=== PATIENT | male | born 1950 | race Caucasian/White ===

== ENCOUNTER 2016-04-19 09:28 | Day surgery (SDC) | payer BC ==
--- NOTE | 2016-04-19 07:07 | History and Physical Report ---
CHIEF COMPLAINT/HISTORY OF CHIEF COMPLAINT: This patient with a post laminectomy radiculitis currently has a spinal fusion system in place low abdomen which is nonfunctional. A spine cord stimulator trial was conducted to determine if the implantation of this device would be of any value. The stimulator trial failed. He is here for removal and replacement of his pump with a new system. The new system will be repositioned from the abdomen to the posterior. PAST MEDICAL HISTORY: Chronic obstructive pulmonary disease. PAST SURGICAL HISTORY: Multiple lumbar laminectomies, pump implant, and battery placement. EMPLOYMENT STATUS: Retired. MEDICATIONS ON ADMISSION: List to be provided. ALLERGIES: None. SOCIAL HISTORY: Caffeine. Cigarette smoking. FAMILY HISTORY: Noncontributory. SYSTEMS REVIEW: The patient is appropriate in no acute distress. The remainder of the systems review is noncontributory. PHYSICAL EXAMINATION: Height and weight are not known. Vital signs: Blood pressure is 140/80. Current examination shows tenderness in the lumbar spine. Range of motion does cause pain with extension. His lower extremity functionality shows pain moving into both lower extremities. Pump in the lower abdominal quadrant, incision intact. Midline catheter incision mid to low back and intact. IMPRESSION: 1. POST LUMBAR LAMINECTOMY SYNDROME, ICD10 CODE M96.1. 2. LUMBAR RADICULITIS, ICD10 CODE M54.16 AND M54.17. 3. NONFUNCTIONAL SPINAL FUSION DEVICE. PLAN: The patient is here for removal of the abdominal pump and replacement with a posterior gluteal margin pump or flank depending upon the most appropriate location for the device. The procedure will be considered outpatient and an overnight stay will be evaluated. All the potential risks, side effect, and complications have been carefully reviewed and discussed. The patient understands the potential for nerve root injury, spinal cord injury, spinal headache, he has read all of the appropriate information provided through the clinic and all of the information provided through the digital media buyer. All questions have been answered. We will consider the patient as stated an overnight stay possibility. GABRIELA KAPOOR D.O. Date & Time JOB NUMBER: [id number] [facility]
[~2016-04-19 09:28] MED LIST: ACETAMINOPHEN 1000MG/100 ML PREMIX IV ONE; CEFAZOLIN 2 Gram 50 ML IVPB ONE; FAMOTIDINE 20MG TABLET PO ONE; HYDROMORPHONE HCL 0.008 GM in 0.9 % SODIUM CHLORIDE 10ML VIA 20 ML IV ONE; HYDROMORPHONE HCL/PF 0.002 MG in 0.9 % SODIUM CHLORIDE 10ML VIA 0.998 ML IVP ONE; MECLIZINE 25 MG TABLET PO ONE; METOCLOPRAMIDE 10 MG TABLET PO ONE
[2016-04-19] MEDS ORDERED: *PACU ONLY* KETAMINE HCL 10 MG/ML (20ML) VIAL IV ONE (14:00)
[2016-04-19] MEDS ORDERED: MIDAZOLAM HCL 2MG/2ML VIAL IV ONE (14:00)
[2016-04-19] MEDS ORDERED: PROPOFOL 10 MG/ML VIAL IV ONE (14:00)
[2016-04-19] MEDS ORDERED: FENTANYL PF 100MCG/2ML VIAL IV ONE (14:00)
[2016-04-19] MEDS ORDERED: DIPHENHYDRAMINE HCL IV 50 MG/ML VIAL IVP PRN ×2 (14:08)
[2016-04-19] MEDS ORDERED: ACETAMINOPHEN 325 MG TAB PO PRN ×2 (14:08)
[2016-04-19] MEDS ORDERED: METOCLOPRAMIDE HCL 10 MG/2 ML VIAL IVP PRN (14:08)
[2016-04-19] MEDS ORDERED: METOCLOPRAMIDE 10 MG TABLET PO PRN (14:08)
[2016-04-19] MEDS ORDERED: HYDROMORPHONE HCL 2 MG/ML VIAL IM PRN (14:08)
[2016-04-19] MEDS ORDERED: TEMAZEPAM 15 MG CAPSULE PO PRN ×2 (14:08)
[2016-04-19] MEDS ORDERED: NALOXONE 0.4 MG/1 ML VIAL IVP PRN (14:08)
[2016-04-19] MEDS ORDERED: HYDROCODONE/APAP 7.5/325MG TABLET PO PRN ×2 (14:08)
[2016-04-19] MEDS ORDERED: AL HYDROX/MAG HYDROX 30ML UD PO PRN (14:08)
[2016-04-19] MEDS ORDERED: DIPHENHYDRAMINE HCL 25 MG CAPSULE PO PRN ×2 (14:08)
[2016-04-19] MEDS ORDERED: OXYCODONE/APAP 10MG-325MG TABLET PO PRN (14:08)
[2016-04-19] MEDS ORDERED: HYDROMORPHONE HCL 1 MG/ML CPJ IM PRN (14:08)
[2016-04-19] MEDS ORDERED: SENNOSIDES/DOCUSATE SODIUM UD CAPSULE PO PRN ×2 (14:08)
[2016-04-19] MEDS ORDERED: MECLIZINE 25 MG TABLET PO PRN (14:11)
[2016-04-19] MEDS: RINGERS SOLUTION,LACTATED 1,000 ML IV SCH ×2 (14:58→21:41)
[2016-04-19] MEDS ORDERED: BUPIVACAINE 0.5% W/EPI MPF 30 ML VIAL IVP ONE (16:35)
[2016-04-19] MEDS ORDERED: CEFAZOLIN 1G VIAL IM ONE (16:35)
[2016-04-19] MEDS ORDERED: LIDOCAINE 1% W/EPI 1:200,000 MPF 30ML SQ ONE (16:35)
[2016-04-19] MEDS ORDERED: HYDROMORPHONE HCL 2 MG/ML VIAL IV ONE (16:35)
[2016-04-19] MEDS: CEFAZOLIN 2 Gram 50 ML IVPB SCH (18:03)
[2016-04-19] MEDS ORDERED: LIDOCAINE UROJECT 10 ML APPL MM ONE (19:22)
[2016-04-19] MEDS ORDERED: MIRTAZAPINE 15 MG TABLET PO SCH (22:00)
[2016-04-20] MEDS: OXYCODONE/APAP 10MG-325MG TABLET PO PRN ×2 (02:50→09:39)
[2016-04-20] MEDS: CEFAZOLIN 2 Gram 50 ML IVPB SCH ×2 (02:51→10:09)
[2016-04-20] MEDS: RINGERS SOLUTION,LACTATED 1,000 ML IV SCH (06:22)
--- NOTE | 2016-04-24 10:39 | Operative Note ---
DATE OF SURGERY: 04/19/2016 PREOPERATIVE DIAGNOSES: 1. Post lumbar laminectomy syndrome, ICD10 M96.1. 2. Lumbar radiculitis, ICD10 M54.16 and M54.17. 3. Implanted spinal fusion system pump and catheter, nonfunctional. OPERATION: 1. Incision, subcutaneous dissection, and removal of nonfunctional pump, right lower abdominal quadrant. 2. Incision, subcutaneous dissection. and removal of indwelling spinal catheter. 3. Fluoroscopic-guided access spinal space at L2-3, placement of thin-wall spinal catheter T11-12. 4. Diagnostic myelography with radiologic supervision and interpretation. 5. Bolus hydromorphone 0.002 mg spinal space. 6. Incision, subcutaneous dissection, anchoring spinal catheter supraspinous fascia using anchor device and envelope suture. 7. Incision, subcutaneous dissection, and creation of subcutaneous pouch at right posterior and superior gluteal margin. Placement of pump, identified as [employer] programmable 20 mL. 8. Tunnelling between pouches, placement of external portion of spinal catheter into pump pouch. Catheter resection. Interface catheter with secondary catheter component with connector interfaced to pump. 9. Placement of pump into pouch securing to posterior fascia with nonabsorbable suture. 10. Diagnostic myelography with radiologic supervision and interpretation through access port. 11. With pump in pouch secured to fascia, closure of incisions with Vicryl for fascia and a running subcuticular Vicryl for skin. 12. Abdominal pouch closed, raissa, pressure dressing. 13. Program pump to delivery by continuous infusion hydromorphone at 0.04 mg per day. 14. Epidural blood patch at L3-4 20 mL autologous blood drawn in sterile technique, left antecubital. Anesthesia: Local sedation. Anesthesia Provider: Apolonia FITCH. Indication: This patient presents with a history of postlaminectomy radiculitis. A programmable pump at one point infusing morphine positioned in the left lower abdominal quadrant. Nonfunctional. He is here for removal of the pump and catheter, replacement with new pump and catheter using a posterior gluteal margin pump pouch site. PROCEDURE: Intravenous line, vital sign monitoring, intravenous sedation by anesthesia. Prepped, draped in sterile technique with the patient prone. Sterile prep and sterile technique. The previous catheter at L2-3 was identified. The skin above and below was infiltrated. Incision made and subcutaneous dissection was conducted to the catheter. The catheter was removed. Purse-string suture placed. At L2-3, a 20 gauge spinal needle with bevel at the long axis paramedial approach was used to get into the spinal space with CSF flow. Thin-wall spinal catheter was advanced to position T11-12. Diagnostic myelopathy was performed confirming flow characteristics. A bolus of hydromorphone 0.002 mg given in spinal space. A purse-string suture had been placed stopping CSF leak once the needle would be removed, and the catheter was anchored to the fascia using an anchor device and nonabsorbable suture. At the right posterior superior gluteal margin or a site picked by the patient, the skin was infiltrated, an incision made, and subcutaneous dissection was conducted to form a pouch of suitable size for the pump itself identified as [employer] 20 mL programmable. A tunnelling tool was used to connect the catheter in the pump pouch. The catheter was then resected, interfaced with second catheter component, which was interfaced to the pump. Antibiotic irrigation and Bovie for hemostasis. The pump/catheter combination placed into the pouch, secured to the posterior fascia using nonabsorbable suture. A 24-gauge Kimble needle was inserted into the access port and 1 mL of catheter contents was aspirated, clearing catheter of opioid and CSF mixture. Diagnostic myelography was performed. The resulting flow characteristics showed the catheter T11-12. Smooth linear flow contrast noted. With the pump in the pouch, the incision was closed, Vicryl for pouch, running subcuticular Vicryl for skin at both incision sites. Dermabond dressing placed. He was then turned supine. Sterile prep. Sterile technique. The right lower abdominal quadrant previous pump site prepped, draped in sterile technique. Skin infiltrated. Incision made and subcutaneous dissection was used to exteriorize the pump. A significant amount of calcification within the Dacron sleeve was resected as much as possible. The previous catheter had fragmented not only when removed from the spinal space, questioning some amount of catheter perhaps still in space, but also fragmented upon removing from the abdominal pouch. Antibiotic irrigation and Bovie for hemostasis. Because of the amount of oozing from the previous Dacron sleeve and calcifications, anticoagulant mesh was placed into the incision. The incision was closed. Vicryl for fascia. Raissa for skin. Pressure dressing placed. The pump was programmed to deliver by continuous infusion hydromorphone 0.04 mg a day. The epidural blood patch had bee performed using 20 mL of autologous blood. Sterile technique without incident. He was transported to the recovery room stable, flat, pillow under head and knees after the blood patch. He will be monitored, but kept overnight for observation. DISCHARGE INSTRUCTIONS IN THE MORNIN. Sites will remain clean and dry, in particular, the abdominal dressing. He will be seen in the office in 3-5 days to evaluate the site. Until then, he is to keep pressure on the abdominal pouch. 2. Standard medication will be resumed including Levaquin antibiotic 500 mg once a day for 14 days. 3. His activity is to stay low. He will be seen in the office in 5-7 days. Will evaluate incisions and clear for further activities. His pump was programmed at a basic starting dose of 0.04 mg a day. Should monitor for side effects such as lightheadedness, drowsiness, sleepiness, urinary retention, constipation, or rash. If any of these side effects happen, contact the clinic. All instructions provided and numbers to contact with problems given. He was then discharged. Cheo Bonner DO CC: Dr. Harris Dumont MD [facility]
== END 2016-04-20 14:00 | disposition home or self-care (01) ==
LOC: SUR 09:28 → MEDSURG 14:06 → SUR 04-20 14:00
PROVIDERS: ATTEND Pain Medicine Interventional Pain Medicine
DX: T85.695A Other mechanical complication of other nervous system device, implant or graft, initial encounter (principal); M96.1 Postlaminectomy syndrome, not elsewhere classified; M54.16 Radiculopathy, lumbar region; M54.17 Radiculopathy, lumbosacral region; J44.9 Chronic obstructive pulmonary disease, unspecified
CPT/HCPCS: 62367; 72020; 94760; 62350; 62362; 00630; Q9967; J1170 ×2; J3010; J0690 ×2; J7120